=== PATIENT | female | born 1980 | race Caucasian/White ===

== ENCOUNTER 2017-04-21 10:10 | Emergency (ER) | payer BC, OTHER ==
[2017-04-21 13:32] LABS: ABS Basophils 0 10^3/ul (0-0.2); ABS Eosinophils 0.1 10^3/ul (0-0.6); ABS Lymphocytes 1.8 10^3/ul (1.0-4.8); ABS Monocytes 0.3 10^3/ul (0-0.8); ABS Neutrophils 4.6 10^3/ul (1.5-7.7); ABS Nucleated RBC 0 10^3/ul; Eosinophil % 1.6 % (0-6); Hematocrit 42 % (35-47); Mean Corpuscular HGB Conc 33 g/dl (31-36); Mean Corpuscular Hemoglobin 29 pg (27-31); Mean Corpuscular Volume 88 fL (80-97); Mean Platelet Volume 9 um3 (7.4-10.4); Nucleated Red Blood Cells % 0; Platelet Count 199 10^3/ul (150-450); Red Cell Distribution Width 13 % (10.5-15); White Blood Count 6.9 10^3/ul (3.5-10.8)
[2017-04-21 13:44] LABS: INR 0.9 (0.77-1.02)
[2017-04-21 13:57] LABS: EGFR Non-African American 89.3 (>60)
--- NOTE | 2017-04-21 14:48 | RAD ---
Indication: Chest pain. 2 views of the chest including dual energy PA views demonstrate no mediastinal shift. Heart is of normal size and configuration. Lung saxena are clear. IMPRESSION: No active cardiopulmonary disease is noted.
[2017-04-21] MEDS ORDERED: Iohexol 350* (CONTRAST) 500 ML MDV IV ONE (15:01)
--- NOTE | 2017-04-21 15:54 | RAD ---
Indication: Elevated d-dimer with chest pain. Contrast: Administered 70.0 ml of OMNIPAQUE 350 mg/ml. CTA of the chest was performed after IV contrast administration. Coronal and sagittal reconstructed images were obtained. The pulmonary arterial tree is well opacified. There are no filling defects present to suggest pulmonary embolus. The thoracic aorta demonstrates no evidence of aneurysmal dilatation. No evidence of aortic dissection is noted. There is no mediastinal or hilar adenopathy noted. The heart demonstrates no pericardial effusion. The trachea and major bronchi appear patent. The lung saxena demonstrate no evidence of alveolar consolidation or focal nodules. The visualized abdominal organs are otherwise unremarkable. IMPRESSION: No evidence of pulmonary embolus is noted.
[2017-04-21 16:47] VITALS: BP 109/63
--- NOTE | 2017-04-21 17:51 | ED ---
Rufus Moreno Angela, scribed for Lelo Conley MD on 04/21/17 at 1543 . HPI Chest Pain - HPI Summary HPI Summary: This pt is a 36 y/o female presenting to [facility] c/o constant sternal chest heaviness for the past month. Pt describes heaviness "like someone is sitting" on her chest. She additionally notes SOB. Her heaviness is aggravated with deep inspirations. Denies nausea, diaphoresis, back pain, vomiting, diarrhea, headache, diplopia, blurry vision, ear ache, dysuria, hematuria, swelling LE, rash, bruises. Pt has taken Advil with mild relief nut notes her chest heaviness returns. She has tried allergy and anxiety medications with no relief. Pt notes she has triplets (three - 6 y/o kids). She also states she has been lifting ice cream tins. 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 Denies FHx of early cardiac disease. - History of Current Complaint Chief Complaint: EDChestWallPain Time Seen by Provider: 04/21/17 14:50 Hx Obtained From: Patient Onset/Duration: Started Weeks Ago, Still Present Timing: Constant, Lasting Weeks Pain Intensity: 0 Chest Pain Location: Mid Sternal Chest Pain Radiates: No Character: Heaviness Aggravating Factor(s): Deep Breaths Alleviating Factor(s): Other: - ibuprofen Associated Signs and Symptoms: Positive: Chest Pain, Shortness of Breath. Negative: Vision Changes, Headaches, Diaphoresis, Nausea, Back Pain, Vomiting, Edema - Allergy/Home Medications Allergies/Adverse Reactions: Allergies Allergy/AdvReac Type Severity Reaction Status Date / Time No Known Allergies Allergy Verified 04/21/17 10:17 PMH/Surg Hx/FS Hx/Imm Hx Endocrine/Hematology History: Denies: Hx Diabetes Cardiovascular History: Denies: Hx Hypertension History: Denies: Hx Renal Disease Psychiatric History: Reports: Hx Anxiety Infectious Disease History: No Infectious Disease History: Denies: Traveled Outside the [place] in Last 30 Days - Family History Known Family History: Positive: Other - ulcers Negative: Cardiac Disease - Social History Alcohol Use: Rare Hx Substance Use: No Substance Use Type: Reports: None Hx Tobacco Use: No Smoking Status (MU): Never Smoked Tobacco Review of Systems Negative: Fever, Skin Diaphoresis Negative: Blurred Vision, Diplopia Negative: Ear Ache Positive: Chest Pain Positive: Shortness Of Breath Negative: Vomiting, Diarrhea, Nausea Negative: dysuria, hematuria Negative: Edema, Other - back pain Negative: Rash, Bruising Negative: Headache All Other Systems Reviewed And Are Negative: No Physical Exam - Summary Physical Exam Summary: Appearance: Alert, conversive, nontoxic appearing Skin: Warm, dry, no mottling, no rashes, no contusions HEENT: EOMI, PERRL, moist mucous membranes Neck: No masses on the neck, supple Respiratory: Clear to auscultation, breath sounds present, no rales, no rhonchi , no wheezes Cardiovascular: RRR, pulses are symmetrical in both lower and upper extremities Abdomen: Soft, non-tender Bowel Sounds: Present Musculoskeletal: No CVA tenderness, no obvious deformity, moving all extremities in a grossly normal manner Neurological: A&Ox3, CN II-XII Intact, moving all extremities symmetrically Psychiatric: Normal affect and mood Triage Information Reviewed: Yes Vital Signs On Initial Exam: Initial Vitals Temp Pulse Resp BP Pulse Ox 98.3 F 87 16 122/68 97 04/21/17 10:34 04/21/17 10:34 04/21/17 10:34 04/21/17 10:34 04/21/17 10:34 Vital Signs Reviewed: Yes - Ruffin Coma Scale Coma Scale Total: 15 Diagnostics - Vital Signs Vital Signs Temp Pulse Resp BP Pulse Ox 04/21/17 15:00 72 21 100 04/21/17 14:03 69 14 99 04/21/17 14:00 100 04/21/17 13:00 98.6 F 68 18 128/58 100 04/21/17 11:29 98.4 F 70 16 104/58 100 04/21/17 10:46 98.0 F 78 16 112/55 98 04/21/17 10:34 98.3 F 87 16 122/68 97 - Laboratory Lab Results: Lab Results 04/21/17 04/21/17 04/21/17 Range/Units 13:20 13:20 13:20 WBC 6.9 (3.5-10.8) 10^3/ul RBC 4.80 (4.0-5.4) 10^6/ul Hgb 14.0 (12.0-16.0) g/dl Hct 42 (35-47) % MCV 88 (80-97) fL MCH 29 (27-31) pg MCHC 33 (31-36) g/dl RDW 13 (10.5-15) % Plt Count 199 (150-450) 10^3/ul MPV 9 (7.4-10.4) um3 Neut % (Auto) 66.9 (38-83) % Lymph % (Auto) 26.0 (25-47) % Cook % (Auto) 4.9 (1-9) % Eos % (Auto) 1.6 (0-6) % Baso % (Auto) 0.6 (0-2) % Absolute Neuts (auto) 4.6 (1.5-7.7) 10^3/ul Absolute Lymphs (auto) 1.8 (1.0-4.8) 10^3/ul Absolute Monos (auto) 0.3 (0-0.8) 10^3/ul Absolute Eos (auto) 0.1 (0-0.6) 10^3/ul Absolute Basos (auto) 0 (0-0.2) 10^3/ul Absolute Nucleated RBC 0 10^3/ul Nucleated RBC % 0 INR (Anticoag Therapy) 0.90 (0.77-1.02) D-Dimer, Quantitative 864 H (Less Than 230) ng/mL Sodium 138 (133-145) mmol/L Potassium 3.9 (3.5-5.0) mmol/L Chloride 105 (101-111) mmol/L Carbon Dioxide 28 (22-32) mmol/L Anion Gap 5 (2-11) mmol/L BUN 9 (6-24) mg/dL Creatinine 0.74 (0.51-0.95) mg/dL Est GFR ( Amer) 114.9 (>60) Est GFR (Non-Af Amer) 89.3 (>60) BUN/Creatinine Ratio 12.2 (8-20) Glucose 102 H (70-100) mg/dL Lactic Acid (0.5-2.0) mmol/L Calcium 9.2 (8.6-10.3) mg/dL Magnesium 2.0 (1.9-2.7) mg/dL Total Bilirubin 0.50 (0.2-1.0) mg/dL AST 15 (13-39) U/L ALT 15 (7-52) U/L Alkaline Phosphatase 49 (34-104) U/L Total Creatine Kinase 80 (10-223) U/L CK-MB (CK-2) 1.4 (0.6-6.3) ng/mL Troponin I 0.00 (<0.04) ng/mL Total Protein 7.0 (6.4-8.9) g/dL Albumin 4.3 (3.2-5.2) g/dL Globulin 2.7 (2-4) g/dL Albumin/Globulin Ratio 1.6 (1-3) TSH 2.03 (0.34-5.60) mcIU/mL Thyroxine (T4) 6.89 (6.09-12.23) mcg/mL Beta HCG, Quant 0.78 mIU/mL 04/21/17 Range/Units 13:20 WBC (3.5-10.8) 10^3/ul RBC (4.0-5.4) 10^6/ul Hgb (12.0-16.0) g/dl Hct (35-47) % MCV (80-97) fL MCH (27-31) pg MCHC (31-36) g/dl RDW (10.5-15) % Plt Count (150-450) 10^3/ul MPV (7.4-10.4) um3 Neut % (Auto) (38-83) % Lymph % (Auto) (25-47) % Cook % (Auto) (1-9) % Eos % (Auto) (0-6) % Baso % (Auto) (0-2) % Absolute Neuts (auto) (1.5-7.7) 10^3/ul Absolute Lymphs (auto) (1.0-4.8) 10^3/ul Absolute Monos (auto) (0-0.8) 10^3/ul Absolute Eos (auto) (0-0.6) 10^3/ul Absolute Basos (auto) (0-0.2) 10^3/ul Absolute Nucleated RBC 10^3/ul Nucleated RBC % INR (Anticoag Therapy) (0.77-1.02) D-Dimer, Quantitative (Less Than 230) ng/mL Sodium (133-145) mmol/L Potassium (3.5-5.0) mmol/L Chloride (101-111) mmol/L Carbon Dioxide (22-32) mmol/L Anion Gap (2-11) mmol/L BUN (6-24) mg/dL Creatinine (0.51-0.95) mg/dL Est GFR ( Amer) (>60) Est GFR (Non-Af Amer) (>60) BUN/Creatinine Ratio (8-20) Glucose (70-100) mg/dL Lactic Acid 0.7 (0.5-2.0) mmol/L Calcium (8.6-10.3) mg/dL Magnesium (1.9-2.7) mg/dL Total Bilirubin (0.2-1.0) mg/dL AST (13-39) U/L ALT (7-52) U/L Alkaline Phosphatase (34-104) U/L Total Creatine Kinase (10-223) U/L CK-MB (CK-2) (0.6-6.3) ng/mL Troponin I (<0.04) ng/mL Total Protein (6.4-8.9) g/dL Albumin (3.2-5.2) g/dL Globulin (2-4) g/dL Albumin/Globulin Ratio (1-3) TSH (0.34-5.60) mcIU/mL Thyroxine (T4) (6.09-12.23) mcg/mL Beta HCG, Quant mIU/mL Result Diagrams: 04/21/17 13:20 04/21/17 13:20 Lab Statement: Any lab studies that have been ordered have been reviewed, and results considered in the medical decision making process. - Radiology Chest XR Xray Interpretation: No Acute Changes - IMPRESSION: No active cardiopulmonary disease is noted. Dr. Conley has reviewed this radiology report. Radiology Interpretation Completed By: Radiologist - CT CTA Chest CT Interpretation: No Acute Changes - IMPRESSION: No evidence of pulmonary embolus is noted. Dr. Conley has reviewed this radiology report. CT Interpretation Completed By: Radiologist - EKG 10:25 Cardiac Rate: NL EKG Rhythm: Sinus Rhythm - at 76 bpm EKG Interpretation: Normal QRS. Normal QTc. Normal ST-T waves. Chest Pain Course/Dx - Course Course Of Treatment: This pt is a 36 y/o female presenting to [facility] c/o constant sternal chest heaviness for the past month. Pt describes heaviness "like someone is sitting" on her chest. She additionally notes SOB. Her heaviness is aggravated with deep inspirations. Denies nausea, diaphoresis, back pain, vomiting, diarrhea, headache, diplopia, blurry vision, ear ache, dysuria, hematuria, swelling LE, rash, bruises. Chest XR is negative. D-dimer is 864, so a CTA was ordered. CTA chest is negative for PE. - Diagnoses Provider Diagnoses: Chest pain Discharge - Discharge Plan Condition: Stable Disposition: HOME Patient Education Materials: Chest Pain (ED) Referrals: Hoa Elena MD [Primary Care Provider] - Additional Instructions: Follow up with your primary care physician. Discuss other possible reasons for chest pain. return if worse or any new symptoms. Take tylenol and motrin as needed for pain. The documentation as recorded by the Rufus gonzalez Angela accurately reflects the service I personally performed and the decisions made by me, Lelo Conley MD.
== END 2017-04-21 16:47 | disposition home or self-care (01) ==
LOC: ED 10:10
DX: R07.2 Precordial pain (principal); R06.02 Shortness of breath
CPT/HCPCS: 36415; 71046; 71275; 80053; 82550; 82553; 83605; 83735; 84436; 84443; 84484; 84702; 85025; 85379; 85610; 93005; 99283; Q9967